=== PATIENT | male | born 1945 | race Caucasian/White ===

== ENCOUNTER 2018-05-19 22:45 | Observation (INO) | payer OTHER, MEDICARE ==
[~2018-05-19] VITALS: Ht 182.9 cm; Wt 101.6 kg
[2018-05-19 23:10] VITALS: BP 151/84
[2018-05-19] MEDS ORDERED: MORPHINE SULFATE IV STA (23:17)
[2018-05-19] MEDS ORDERED: NS 1000ML 1,000 ML STA (23:17)
[2018-05-19] MEDS ORDERED: ZOFRAN IV STA (23:17)
[2018-05-19 23:31] LABS: BILIRUBIN,URINE NEGATIVE (NEGATIVE); UROBILINOGEN,URINE NORMAL (NEGATIVE)
[2018-05-19] MEDS ORDERED: NS 1000ML 1,000 ML ONE (23:35)
[2018-05-19] MEDS ORDERED: ZOFRAN ONE (23:36)
[2018-05-19] MEDS ORDERED: MORPHINE SULFATE ONE (23:36)
[2018-05-19 23:37] LABS: BASOPHIL % 0.5 % (0.0-0.2); EOSINOPHIL # 0.1 10^3/uL (0.0-0.2); EOSINOPHIL % 1.6 % (0.0-5.0); HEMOGLOBIN 13.9 g/dL (13.9-16.3); LYMPHOCYTES # 1.5 10^3/uL (1.0-4.8); LYMPHOCYTES % 26.5 % (24.0-44.0); MEAN CELL HGB 29.8 pg (26-34); MEAN CELL HGB CONCENTRATION 34.5 g/dL (33-37); MEAN CORP VOLUME 86.3 fL (78-100); MEAN PLATELET VOLUME 10.5 fL (7.8-11.0); MONOCYTES # 0.7 10^3/uL (0.3-0.8); MONOCYTES % 13.3 % (5.0-12.0); NEUTROPHIL # 3.2 10^3/uL (1.8-7.7); NEUTROPHILS % 58.1 % (41.0-85.0); RED CELL DISTRIBUTION WIDTH 13.5 % (11.5-14.5); WHITE BLOOD CELL 5.6 10^3/uL (4.5-11.0)
--- NOTE | 2018-05-19 23:39 | ER.PDOC ---
General Chief Complaint: Nausea,Vomiting,Diarrhea Stated Complaint: DIARRHEA Time seen by MD: 23:15 Source: patient Exam Limitations: no limitations History of Present Illness Initial Comments Pt states abd pain with diarrhea for 5 days. Also states he has not been eating and his blood sugar has been running in the 60s. Timing/Duration: other Context: bad food Severity/Quality: moderate, aching 1 - Radiation: no radiation Associated Symptoms: diarrhea Exacerbated by: food Relieved By: nothing Allergies: Coded Allergies: No Known Allergies (Unverified , 05/19/18) Vital Signs First Vital Signs Date Time Temp Pulse Resp B/P (MAP) Pulse Ox O2 Delivery O2 Flow Rate FiO2 05/19/18 23:07 97.6 81 18 96 Room Air 97.6 05/19/18 23:10 151/84 (106) Last Vital Signs Date Time Temp Pulse Resp B/P (MAP) Pulse Ox O2 Delivery O2 Flow Rate FiO2 05/19/18 23:10 97.6 81 18 151/84 (106) 96 Room Air 97.6 Past Medical History Medical History: diabetes Surgical History: cholecystectomy, other Family History Significant Family History: no pertinent family hx Social History Smoking: non-smoker Alcohol Use: none Drug Use: none Constitutional: denies no symptoms reported, denies see HPI, denies chills, denies diaphoresis, denies fever; malaise; denies weakness, denies other EENTM: no symptoms reported Respiratory: no symptoms reported Cardiovascular: no symptoms reported Gastrointestinal: abdomen distended, abdominal pain, diarrhea, nausea Genitourinary: no symptoms reported Musculoskeletal: denies no symptoms reported, denies see HPI, denies back pain , denies gout, denies joint pain, denies joint swelling, denies muscle pain, denies muscle stiffness, denies neck pain, denies other Skin: no symptoms reported Psychiatric/Neurological: no symptoms reported Endocrine: see HPI, other Hematologic/Lymphatic: no symptoms reported All Other Systems: Reviewed and Negative Physical Exam General Appearance: Mild Distress HEENT: PERRL/EOMI, Normal ENT Inspection, TMs Normal, Pharynx Normal Neck: Non-Tender, Full Range of Motion, Supple, Normal Inspection Respiratory: chest non-tender, lungs clear, normal breath sounds, no respiratory distress, no accessory muscle use Cardiovascular: Normal Peripheral Pulses, Regular Rate, Rhythm, No Edema, No Gallop, No JVD, No Murmur 1 - Distention, gen tenderness Gastrointestinal: Normal Bowel Sounds Male Genitalia: Normal Genitalia Back: Normal Inspection, No CVA Tenderness, No Vertebral Tenderness Extremities: Normal Range of Motion, Non-Tender, Normal Inspection, No Pedal Edema, No Calf Tenderness, Normal Capillary Refill, Pelvis Stable Neurologic/Psychiatric: shiftman II-XII NML as Tested, No Motor/Sensory Deficits, Alert, Normal Mood/Affect, Oriented x 3 Skin: Normal Color, Warm/Dry Lymphatic: No Adenopathy EKG/XRAY/CT/US XRAY: abdomen CT Comments: Small bowel air/fluid levels and distention with possible transition point Consult/PCP Time Consult/PCP Called: 01:45 Consult/PCP: Dr. Landin, Dr. Multani Reason/Comments: Suspected small bowel obstruction, admit Dr. Multani, yris Landin Course Vitals & review Data Vital Sign - Last 24 Hours 05/19/18 05/19/18 05/19/18 23:07 23:07 23:10 Temp 97.6 97.6 97.6 97.6 97.6 97.6 Pulse 81 81 81 Resp 18 18 18 B/P (MAP) 151/84 (106) Pulse Ox 96 96 O2 Delivery Room Air Room Air Sepsis Infection Criteria Pres: None O2 Sat by Pulse Oximetry: 96 Departure Time of Disposition: 02:07 Disposition: 09 ADMITTED INPATIENT Impression: Primary Impression: Small bowel obstruction, partial Condition: Improved Referrals: PCP,UNKNOWN (PCP) PRIMARY CARE PROVIDER Duration or Time Spent with Pa: 40 ABRAN HERRERA MD May 19, 2018 23:39
[2018-05-19 23:43] LABS: APPEARANCE,URINE CLEAR (CLEAR); UA COLOR YELLOW (YELLOW)
[2018-05-19 23:59] LABS: ALANINE AMINOTRANSFERASE(ML) 39 U/L (12-78); ALKALINE PHOSPHATASE 79 U/L (50-136); ASPARTATE AMINO TRANSFERASE 29 U/L (0-35); CALCIUM 8.8 mg/dL (8.4-10.5); CARBON DIOXIDE 23.3 mmol/L (20.0-32); GLUCOSE 103 mg/dL (70-110)
[2018-05-20] VITALS (8 sets, daily range): BP systolic 127–153; BP diastolic 60–85
--- NOTE | 2018-05-20 00:15 | PCM.EKG ---
[facility] Test Date: 2018-05-20 Test Time: 00:07:23 Pat Name: INGE CRISTOBAL Department: Room: Gender: M Chemist Organic: : 1945 Requested By: ABRAN HERRERA Order Number: [id number] Reading MD: Measurements Intervals [place] Rate: 73 P: 47 CO: 176 QRS: 6 QRSD: 92 T: 46 QT: 406 QTc: 447 Interpretive Statements Normal sinus rhythm Normal ECG No previous ECG available for comparison Please click the below link to view image of tracing.
--- NOTE | 2018-05-20 01:27 | DIREP ---
PROCEDURE:CT ABD/PELVIS WITH CONTRAST TECHNIQUE:No oral contrast was given. Following the intravenous administration of contrast material, axial cuts were obtained from the dome of the diaphragm to the ischial tuberosities. The images were viewed at lung and soft tissue settings. Sagittal and coronal reconstructions are provided. COMPARISON:None. INDICATIONS:Abd pain/distention, diarrhea FINDINGS: LOWER CHEST:Bibasilar dependent atelectasis. LIVER:Multiple cysts and/or hemangioma are seen in the liver, some of these however too small to adequately characterize. BILIARY:Gallbladder not seen. PANCREAS:Severe atrophy otherwise unremarkable. SPLEEN:Granuloma. URINARY TRACT:Bilateral parapelvic renal cysts. ADRENALS:Normal. AORTA/VASCULAR:Atherosclerotic plaque. RETROPERITONEUM:Normal. BOWEL/MESENTERY:Distended small bowel loops are seen in the pelvis with air-fluid levels consistent with obstruction. Distal ileal loops are collapsed. Transition point is probably somewhere in the mid ileum or distal jejunum. Appendix is normal. Evaluation the bowel is limited without oral contrast. ABDOMINAL WALL:Midline postsurgical changes. PELVIS:Normal. BONES:Degenerative changes in the spine. OTHER:Normal. CONCLUSION: 1. Findings consistent with small bowel obstruction, transition point probably in the mid ileum or distal jejunum. 2. Other findings as above. Dictated by: Virgilio Nam MD on 05/20/2018 at 01:19 AM
--- NOTE | 2018-05-20 01:47 | NUR ---
KENNY HERRERA ON PHONE WITH DR COX
--- NOTE | 2018-05-20 01:52 | NUR ---
YINKA HERRERA ON PHONE WITH DR HONEYCUTT FOR ADMIT
[2018-05-20] MEDS: NS 1000ML 1,000 ML IV SCH ×4 (02:41→19:42)
--- NOTE | 2018-05-20 02:44 | NUR ---
MED [facility]G CALLED MED [facility] AND THEY STATED THAT THE NURSE TAKING PT IS ON BREAK FOR 10 MORE MIN.
--- NOTE | 2018-05-20 02:55 | NUR ---
MED SURG TAKEN TO [facility] VIA WHEELCHAIR FOR ADMIT
[2018-05-20] MEDS ORDERED: INSU100I13 SQ (03:28)
[2018-05-20] MEDS ORDERED: INSU100V14 SQ (03:33)
[2018-05-20] MEDS ORDERED: TAMS-14 PO (03:36)
[2018-05-20] MEDS ORDERED: TYLENOL RC ONE (05:30)
[2018-05-20] MEDS ORDERED: DEXTROSE 50%-WATER SYRINGE IV STA (06:14)
[2018-05-20] MEDS ORDERED: DEXTROSE 50%-WATER SYRINGE IV ONE (06:17)
--- NOTE | 2018-05-20 06:32 | NUR ---
NOTIFIED DR. FARFAN OF BLOOD SUGAR 69 ORDER RECEIVED FOR 1/2 AMP D 50 IV.AND GIVEN
--- NOTE | 2018-05-20 08:50 | PCM.HP ---
History of Present Illness Reason for Visit: N/V/D History of Present Illness Patient is a 72 M PMH of Pancreatitis with Pseudocyst formation s/p repair and IDDM, and BPH presenting with nausea/vomiting/diarrhea x [address] scan in ER showing possible bowel obstruction. Surgery consulted from ER and recommended NGT and NPO. Patient feels better with NGT in place. Patient given IVF overnight and symptoms better controlled. Patient denies hematemesis , hematochezia, or melena. Patient denies fever. Labs, imaging reviewed. Patient is comfortable and resting during my evaluation. No complaints. Past Medical History Hepatobiliary: Other (Pancreatitis) Endocrine: Diabetes Past Surgical History: Cholecystectomy, Hernia Repair, Other (Pancreatitic procedure) Past Social History Smoke: No Alcohol: none Drugs: None Lives: with Family Travel Hx EBOLA RISK:Travel to/contact w: No Is pt experiencing any Ebola s: No Review of Systems Constitutional: No: Fever, Chills Eyes: No: Conjunctivae inflammation, Eyelid inflammation ENT: No: Nose discharge, Nose congestion Respiratory: No: Shortness of breath, SOB with excertion, Wheezing Cardiovascular: No: Chest Pain, Palpitations, Edema Gastrointestinal: Nausea, Vomiting, Abdominal Pain, Diarrhea Genitourinary: No Hematuria, No Retention Musculoskeletal: No: neck pain, back pain Skin: No: Rash, Lesions, Jaundice, Bruising Neurological: No: Weakness, Numbness, Incoordination, Change in speech, Confusion, Seizures Allergies: Coded Allergies: No Known Allergies (Unverified , 05/19/18) Scheduled Insulin Aspart (Novolog), 10 UNIT SQ DAILY24, (Reported) Insulin Glargine,Hum.rec.anlog (Lantus Solostar), 45 UNIT SQ DAILY24, (Reported) Tamsulosin Hcl (Flomax), 0.4 MG PO DAILY24, (Reported) VTE VTE Risk Total Score: 2 VTE Risk Score VTE Risk: Score 0-1 = Low Risk (Aggressive mobilization; early ambulation; no VTE prophylaxis required) Score 2: Moderate Risk (Intermittent/Pneumatic Compression Device OR Lovenox/Heparin/Coumadin) Score 3-4: High Risk (Intermittent/Pneumatic Compression Device AND Lovenox/Heparin/Coumadin) Score > or =5: Highest Risk (Intermittent/Pneumatic Compression Device AND Lovenox/Heparin/Coumadin) VTE VTE Present on Admission: No Currently receiving anticoagul: No VTE Risk Total Score: 2 Exam Vital Signs Vital Signs Date Time Temp Pulse Resp B/P (MAP) Pulse Ox O2 Delivery O2 Flow Rate FiO2 05/20/18 07:07 Room Air 05/20/18 03:11 97.6 78 18 98 05/20/18 02:55 153/85 (107) General Appearance: Alert, Oriented X3, Cooperative, No acute distress HEENT: Atraumatic, PERRLA, EOMI, Mucous membr. moist/pink, Other (NGT in place) Respiratory: Clear to auscultation, Normal air movement Cardiovascular: Regular rate, Normal S1, Normal S2, No murmurs Abdominal: Normal bowel sounds, Soft, No tenderness Extremities: No edema, Normal pulses, No tenderness/swelling Skin: No rash, No breakdown, No lesions Neuro: Normal gait, Normal speech, Strength at 5/5 X4 ext, Normal tone, Sensation intact, Cranial nerves 3-12 NL Psych/Mental Status: Mental status NL, Mood NL Assessment/Plan Assessment/Plan Assessment/Plan Patient is a 72 M PMH of Pancreatitis with Pseudocyst formation s/p repair and IDDM, and BPH presenting with nausea/vomiting/diarrhea x 5 days. Plan 1. Nausea/vomiting/Diarrhea/abdominal Pain: patient symptoms likely 2/2 Gastroenteritis v. SBO. NGT in place. Cont pain control, IV antiemetics, IVF. Surgery consulted for further evaluation. 2. Hx of Pancreatitis: monitor, Lipase normal. No acute symptoms. 3. BPH: cont flomax when tolerating PO 4. DM: Hypoglycemic overnight. SSI to cover. 5. PPx: iLse Dennis MICAH R MD May 20, 2018 08:50
[2018-05-20] MEDS ORDERED: MORPHINE SULFATE IV PRN (09:00)
[2018-05-20] MEDS ORDERED: ZOFRAN IV PRN (09:00)
[2018-05-20] MEDS ORDERED: DEXTROSE 50%-WATER SYRINGE IV PRN (09:00)
[2018-05-20] MEDS: PEPCID IV SCH ×2 (09:18→20:40)
[2018-05-20] MEDS: LOVENOX SQ SCH (09:18)
--- NOTE | 2018-05-20 11:14 | NUR ---
DISCHARGE PLANNING CM VISITED WITH PATIENT REGARDING D/C PLANNING NEEDS. PATIENT STATED HE LIVES AT HOME WITH HIS SPOUSE IN [place]. HE GOES THE [facility] IN [facility]. HE EXPLAINED THAT HE IS ONLY HERE TO HELP HIS AUNT GET MOVED TO THE [facility]. PATIENT REFUSED ANY D/C RESOURCES AT THIS TIME. CHOICE LETTER SIGNED AND PLACED IN CHART. CM WILL CONTINUE TO FOLLOW NEEDS OF PATIENT.
--- NOTE | 2018-05-20 11:59 | DIET.OP ---
Nutrition Asmt/Malnutrit 2-17 Actual Date of Review: May 20, 2018 Nutritional Screening: Malnutr/Diet Consult Diagnosis: N/V/D Pertinent Medical Hx/Surgical: Per MD: Pancreatitis with Pseudocyst formation s/p repair and IDDM, and BPH Subjective Information: Consulted for Malnutrition Screening. His appetite is better, but he had a loss of appetite the 6 days prior to admission. no chewing or swallowing difficulty. Reports that he eats one meal per day and snacks. He checks his sugars once daily and his blood sugars run between 180-200 mg/dL. MD came in during consulted and said that the patient NG tube could be removed and diet could be advanced. Current Diet Order/Nutrition S: Clear Liquid Pertinent Meds Current Medications Medications (Trade) Dose Ordered Sig/Carmita PRN Reason Start Time Stop Time Status Last Admin Dextrose (Dextrose 50%-Water Syringe) 25 ml STAT PRN HYPOGLYCEMIA 05/20/18 09:00 06/19/18 08:59 Enoxaparin Sodium (Lovenox) 40 mg Q24HRS 05/20/18 09:00 06/19/18 08:59 05/20/18 09:18 Famotidine (Pepcid) 20 mg BID 05/20/18 09:00 06/19/18 08:59 05/20/18 09:18 Insulin Human Lispro (Humalog) Humalog. Give when food is... TIDM 05/20/18 12:00 06/19/18 11:59 Morphine Sulfate (Morphine Sulfate) 2 mg Q4H PRN PAIN 05/20/18 09:00 06/19/18 08:59 Ondansetron HCl (Zofran) 4 mg Q4H PRN NAUSEA / VOMITING 05/20/18 09:00 06/19/18 08:59 Sodium Chloride 1,000 ml @ 150 mls/hr Q6H40M 05/20/18 02:30 06/19/18 02:29 05/20/18 07:05 Pertinent Labs Laboratory Tests 05/19/18 22:51: Urine Collection Type VOID, Urine Color YELLOW, Urine Appearance CLEAR, Urine Bilirubin NEGATIVE, Urine Ketones NEGATIVE, Urine Specific [place] 1.015, Urine pH 6, Urine Protein NEGATIVE, Urine Urobilinogen NORMAL, Urine Nitrate NEGATIVE , Urine Leukocyte Esterase NEGATIVE, Urine Blood 25 1+H, Urine RBC 0-2, Urine WBC NONE SEEN, Urine Squamous Epithelial Cells NONE SEEN, Urine Bacteria NONE SEEN, Urine Glucose NORMAL 05/19/18 23:30: White Blood Count 5.6, Red Blood Count 4.67, Hemoglobin 13.9, Hematocrit 40.3, Mean Corpuscular Volume 86.3, Mean Corpuscular Hemoglobin 29.8, Mean Corpuscular Hemoglobin Concent 34.5, Red Cell Distribution Width 13.5, Platelet Count 191, Mean Platelet Volume 10.5, Neutrophils (%) (Auto) 58.1, Lymphocytes ( %) (Auto) 26.5, Monocytes (%) (Auto) 13.3H, Neutrophils # (Auto) 3.2, Lymphocytes # (Auto) 1.5, Monocytes # (Auto) 0.7, Absolute Immature Granulocyte (auto 0, Eosinophils % 1.6, Basophils % 0.5H, Basophils # 0.0, Eosinophil Count 0.1, Sodium Level 139, Potassium Level 3.8, Chloride Level 105.0, Carbon Dioxide Level 23.3, Anion Gap 14.5, Blood Urea Nitrogen 15, Creatinine 1.13, Estimated GFR () 77.2, BUN/Creatinine Ratio 13.0, Glucose Level 103, Calcium Level 8.8, Total Bilirubin 0.7, Aspartate Amino Transf (AST/SGOT) 29, Alanine Aminotransferase (ALT/SGPT) 39, Alkaline Phosphatase 79, Total Creatine Kinase 210, Troponin I < 0.02, Pro-B-Type Natriuretic Peptide 119, Total Protein 7.0, Albumin 3.5, Globulin 3.5, Lipase 35L, Percent Immature Gran (Cell Imm) 0.00 Height (Feet): 6 Height (Inches): 0 Current Weight: 224 Usual Weight: 225 %UBW: 99 %IBW: 126 Weight Status: Obese Food Allergies: No Cultural/Ethnic/Rastafarian [place]: None reported Usual Diet at Home: Diabetic Diet BEE in Kcals: Use Current Weight Calories/Kcals/Kg: MsJ * 1.2-1.3 Kcals Calculated: Protein: Use Current Weight Protein g/k-20% of 1999 ADA Protein Calculated: 75g-100g Fluid: ml: 3644-2129 or 1 mL/kcal Nutritional Problem: Nutr. Problems Present Problems: Indequate energy intake Etiology: partial SOB Signs/Symptoms: N/V/D, loss of appetite of the past [address] Comments: CHO needs: 45-55% of a 2000 ADA diet or 225g-275g daily Intervention: 1. Recommend a 2000 ADA Consistent Carbohydrate diet when he is able to tolerate food Monitor/evaluate: 1. Blood Glucose Levels 2. Weight status 3. po intake Expected Outcomes Goal: 1. The patient will consume 100% of meals provided to meet 100% of estimated energy needs over the next 2-3 days Discharge plan: 1. Discharge planning in progress Malnutrtion/Nutrition Risk Edu: CYNTHIA Odom RD May 20, 2018 11:59
[2018-05-20] MEDS: HUMALOG SQ SCH ×2 (12:00→18:00)
[2018-05-20] MEDS ORDERED: TYLENOL RC PRN (13:30)
--- NOTE | 2018-05-20 20:00 | NUR ---
Report Received report from Misbah Tobin RN
[2018-05-20] MEDS ORDERED: DESYREL PO PRN (21:00)
[2018-05-20] MEDS ORDERED: NS 1000ML 1,000 ML STA (23:17)
[2018-05-21] MEDS: NS 1000ML 1,000 ML IV SCH ×2 (01:52→07:47)
[2018-05-21 05:18] LABS: BASOPHIL % 0.4 % (0.0-0.2); EOSINOPHIL # 0.2 10^3/uL (0.0-0.2); EOSINOPHIL % 4.3 % (0.0-5.0); HEMOGLOBIN 12.7 g/dL (13.9-16.3); LYMPHOCYTES # 1.2 10^3/uL (1.0-4.8); LYMPHOCYTES % 24.3 % (24.0-44.0); MEAN CELL HGB 29.8 pg (26-34); MEAN CELL HGB CONCENTRATION 34.5 g/dL (33-37); MEAN CORP VOLUME 86.4 fL (78-100); MEAN PLATELET VOLUME 10.8 fL (7.8-11.0); MONOCYTES # 0.6 10^3/uL (0.3-0.8); MONOCYTES % 11.2 % (5.0-12.0); NEUTROPHIL # 3.1 10^3/uL (1.8-7.7); NEUTROPHILS % 59.6 % (41.0-85.0); RED CELL DISTRIBUTION WIDTH 13.3 % (11.5-14.5); WHITE BLOOD CELL 5.1 10^3/uL (4.5-11.0)
[2018-05-21 05:45] LABS: CARBON DIOXIDE 23.6 mmol/L (20.0-32)
[2018-05-21 05:46] LABS: CALCIUM 8.1 mg/dL (8.4-10.5)
--- NOTE | 2018-05-21 06:55 | NUR ---
Report Report given to Misbah Tobin RN
[2018-05-21 07:52] VITALS: BP 131/69
[2018-05-21] MEDS: HUMALOG SQ SCH ×2 (08:00→12:00)
[2018-05-21] MEDS: PEPCID IV SCH (08:28)
[2018-05-21] MEDS: LOVENOX SQ SCH (08:28)
--- NOTE | 2018-05-21 10:19 | NUR ---
NG TUBE REMOVED AT THIS TIME. PT TOLERATED WELL NO ISSUES NOTED
--- NOTE | 2018-05-21 11:23 | NUR ---
AMBULATION PT AMBULATED INDEPENDENTLY DOWN IRVING X1 ALONGSIDE THIS RN, APPROX 300 FT WITHOUT DIFFICULTY. DENIES PAIN, NO DISTRESS NOTED.
--- NOTE | 2018-05-21 13:24 | CNH ---
DATE OF CONSULTATION: 05/20/2018 BRIEF CONSULTATION NOTE CHIEF COMPLAINT: Possible bowel obstruction. HISTORY OF PRESENT ILLNESS: This is a 72-year-old male who apparently had several days of loose stools that were persistent. He had to concern for dropping blood sugar and was evaluated in the Emergency Department. He had a CT scan that showed concerns for possible bowel obstruction and subsequently, he had NG tube placed and has been admitted to the Med/Surg floor service of the hospitalist for IV fluid hydration. The patient is pleasant. He does not report abdominal pain any time during my evaluation. Today, he reports that he ate possibly some contaminated food prior to the onset of symptoms, he had one day of nausea and vomiting followed by several days of loose stools. He is otherwise pleasant and cooperative. PAST MEDICAL HISTORY: Includes diabetes and previous pancreatitis with pseudocyst that relates to [place] exposure. He also has a history of BPH. PAST SURGICAL HISTORY: Includes cholecystectomy, hernia repair and partial pancreatectomy. ALLERGIES: No known drug allergies. SOCIAL HISTORY: Negative for alcohol, tobacco or illicit drug use per chart. FAMILY HISTORY: Essentially noncontributory to this evaluation. OUTPATIENT MEDICATIONS: Per reconciliation list. INPATIENT MEDICATIONS: Per MAR. REVIEW OF SYSTEMS: CONSTITUTIONAL: He had no fever or chills. ENDOCRINE: He has known diabetes. Denies thyroid disease. CARDIOVASCULAR: No chest pain or trouble breathing. PULMONARY: No dyspnea or cough. ABDOMEN: As per HPI. MUSCULOSKELETAL: Has no acute complaints. NEUROLOGIC: Denies any previous seizure or loss of consciousness. SKIN AND INTEGUMENTARY: No acute complaints. PHYSICAL EXAMINATION: GENERAL: He is alert and pleasant 72-year-old male who is in no acute distress. He is cooperative and pleasant throughout the evaluation. VITAL SIGNS: Last temperature is 97.7, pulse 67, respiratory rate 17, blood pressure 137/76. HEENT: Normocephalic, atraumatic. [place] mucous membranes. NECK: Supple and soft. Trachea is midline. There is no JVD or thyromegaly. HEART: Has essentially regular rate and rhythm. LUNGS: Clear bilaterally. ABDOMEN: The bowel sounds are positive and soft. They are not tender on exam. EXTREMITIES: Show positive radial pulses bilaterally. Positive dorsal pedal pulses bilaterally. NEUROLOGIC: He has no focal findings. Cranial nerves 2-12 are grossly intact. SKIN AND INTEGUMENTARY: Warm and dry. LABORATORY STUDIES: Show white count 5.6, hemoglobin 13.9, platelet count 191. Chemistry shows BUN of 15, creatinine of 1.13. IMAGING STUDIES: He has a CT scan that shows partial small-bowel obstruction with a transition point in the mid ileum. He has other chronic findings noted. ASSESSMENT: 1. Gastroenteritis versus partial small-bowel obstruction. 2. History of diabetes. 3. History of [place] exposure. PLAN: 1. The patient is seen and examined. The chart is reviewed. 2. Continue with NG tube decompression. Through the course of the day, has been tolerated and will clamp NG tube and trial of clears. 3. Continue excellent medical management with primary service. Blu Landin DO DR: EVON/fanta JOB# [id number] CC: Camilo Multani M.D.
--- NOTE | 2018-05-21 13:44 | PRM.DC ---
Discharge Summary Date of Discharge: May 21, 2018 Time of Request to Discharge: 13:38 Reason for Visit: N/V/D Hospital Course Patient admitted with symptoms concerning for Colitis/Gastroenteritis. Patient had CT scan in ER showing possible bowel obstruction. Patient treated with NGT , NPO, and IVF. Patient symptoms improved. Surgery consulted. Patient diet slowly advanced and patient able to tolerate CLD. NGT d/c and patient tolerated full diet without nausea or vomiting. Pain has also resolved. Patient cleared by Surgery prior to d/c. Patient given strict return precautions. General: Alert, Oriented X3, Cooperative, No acute distress HEENT: Atraumatic, PERRLA, EOMI, Mucous membr. moist/pink Neck: Supple, No JVD Lungs: Clear to auscultation, Normal air movement Heart: Regular rate, Normal S1, Normal S2, No murmurs Abdomen: Normal bowel sounds, Soft, No tenderness Extremities: No edema, Normal pulses, No tenderness/swelling Skin: No rashes, No breakdown, No significant lesion Neuro: Normal gait, Normal speech, Strength at 5/5 X4 ext, Normal tone, Sensation intact, Cranial nerves 3-12 NL Psych/Mental Status: Mental status NL, Mood NL Scheduled Insulin Aspart (Novolog), 10 UNIT SQ DAILY24, (Reported) Insulin Glargine,Hum.rec.anlog (Lantus Solostar), 45 UNIT SQ DAILY24, (Reported) Tamsulosin Hcl (Flomax), 0.4 MG PO DAILY24, (Reported) Sepsis Evaluation @ Discharge Vital Sign - Last 24 Hours 05/19/18 05/19/18 05/19/18 23:07 23:07 23:10 Temp 97.6 97.6 97.6 97.6 97.6 97.6 Pulse 81 81 81 Resp 18 18 18 B/P (MAP) 151/84 (106) Pulse Ox 96 96 O2 Delivery Room Air Room Air Course Sepsis Screening Results: Posi: NEGATIVE Sepsis Qualifier/Stage: NO DEFINITE RISK Duration or Total Time Spent w: 40 Vitals & review Data Vital Sign - Last 24 Hours 05/19/18 05/19/18 05/19/18 23:07 23:07 23:10 Temp 97.6 97.6 97.6 97.6 97.6 97.6 Pulse 81 81 81 Resp 18 18 18 B/P (MAP) 151/84 (106) Pulse Ox 96 96 O2 Delivery Room Air Room Air Sepsis Infection Criteria Pres: None LEVEL 1 SEPSIS INFECTION CRITE: Abdominal Pain LEVEL 2-SIRS (LIST ALL THAT AP: None/Not assessed Hematologic Evidence: None/Not assessed Hepatic Evidence: None/Not assessed Neurological Evidence: None/Not assessed O2 Sat by Pulse Oximetry: 93 Plan Discharge Date: May 21, 2018 Dicharge DX: Gastroenteritis, SBO Discharge Disposition: Stable Plan ok to d/c to home self care medications: per med rec list Diet: bland Activity: as tolerated F/U with PCP within 1-2 weeks return to care for worsening pain, nausea, vomiting, diarrhea, fever, or any other concerning symptoms. OLIVER HONEYCUTT MD May 21, 2018 13:44
[2018-05-21 14:00] VITALS: BP 131/69
--- NOTE | 2018-05-21 14:00 | NUR ---
DISCHARGE PT DC AT THIS TIME. PT UNDERSTANDS ALL DC INSTRUCTIONS AND TO FOLLOW UP WITH PCP IN 1 WEEK ALONG WITH A SOFT BLAND DIET. NO OTHER NEEDS NOTED AT THIS TIME. ACCOMPANIED PT OFF OF FLOOR AT THIS TIME TO PRIVATE VEHICLE. NO OTHER NEEDS NOTED AT THIS TIME.
== END 2018-05-21 15:16 | disposition home or self-care (01) ==
LOC: ER 22:45 → MS 05-20 02:21 → INTOOBSV 05-20 08:32 → OBSVTOIN 05-20 08:32 → EDPENDDISDT 05-21 14:00 → EDPENDDISTM 05-21 14:00
PROVIDERS: ADMIT Family Medicine; ATTEND Family Medicine
DX: R11.2 Nausea with vomiting, unspecified (principal); R19.7 Diarrhea, unspecified; K85.90 Acute pancreatitis without necrosis or infection, unspecified; N40.0 Benign prostatic hyperplasia without lower urinary tract symptoms; R06.02 Shortness of breath; K56.609 Unspecified intestinal obstruction, unspecified as to partial versus complete obstruction; R10.9 Unspecified abdominal pain; E11.649 Type 2 diabetes mellitus with hypoglycemia without coma; K52.9 Noninfective gastroenteritis and colitis, unspecified; Z98.890 Other specified postprocedural states; Z79.4 Long term (current) use of insulin
CPT/HCPCS: 36415 ×2; 74177; 80053 ×2; 81000; 82550; 82948 ×6; 83690; 83880; 84484; 85025 ×2; 93005; 96361 ×2; 96372 ×2; 96374; 96375 ×2; 96376 ×2; 99284; G0378 ×37; J1650 ×2; J2270 ×2; J2405 ×2; J3490 ×3; J7030 ×7; Q9967; J7060